=== PATIENT | female | born 1970 | race Caucasian/White ===

== ENCOUNTER 2017-04-08 13:21 | Emergency (ER) | payer BC ==
[~2017-04-08] VITALS: Ht 175.3 cm; Wt 68.7 kg
[2017-04-08 14:19] LABS: HEMATOCRIT 37.2 % (36.0-46.0); MCHC 29.8 G/DL (30.0-36.0); MCV 80.5 FL (83-99); MEAN PLAT.VOLUME 9.8 uM^3 (9.5-12.4); PLATELET COUNT 301 K/uL (156-360); RBC DIS.WIDTH-CV 22.2 % (11.8-14.6); RBC DIS.WIDTH-SD 63.4 % (39-53); RED BLOOD COUNT 4.62 M/uL (3.80-5.20); WHITE BLOOD COUNT 8.7 K/uL (4.1-10.2)
[2017-04-08 14:31] LABS: CHLORIDE 108 mEq/L (99-109); POTASSIUM 4.2 mEq/L (3.7-5.4); SODIUM 141 mEq/L (136-147)
[2017-04-08 14:34] LABS: GLUCOSE 146 mg/dL (70-99)
[2017-04-08 14:35] LABS: ANION GAP 9 MEQ/L (2-14)
[2017-04-08 14:36] LABS: TOTAL BILIRUBIN 0.3 mg/dL (0.0-1.0)
[2017-04-08 14:37] LABS: ALKALINE PHOSPHATASE 79 IU/L (3-129); GFR ESTIMATE (CALCULATED) > 59 mL/min/
[2017-04-08 14:38] LABS: UREA NITROGEN (BUN) 8 mg/dL (9-23)
[2017-04-08 14:45] LABS: ADD MIUA? YES; BILIRUBIN NEGATIVE; BLOOD MODERATE; COLOR YELLOW ((YELLOW)); GLUCOSE (STRIP) NEGATIVE; KETONES NEGATIVE; LEUKOCYTES MODERATE; NITRITE NEGATIVE; PROTEIN (STRIP) NEGATIVE; UROBILINOGEN 0.2 MG/DL (0.2-1.0)
[2017-04-08 14:47] LABS: QUANTITATIVE HCG < 4.0 MIU/ML
[2017-04-08 14:52] LABS: BACTERIA RARE /HPF; EPITHELIAL CELLS 2+ /HPF; MUCUS TRACE /LPF; RED BLOOD CELLS 0-5 /HPF (0-5); UCUL ADDED? YES; WHITE BLOOD CELLS 15-20 /HPF (0-5)
[2017-04-08] MEDS ORDERED: ANTIVERT25 MG PO (18:49)
[2017-04-08] MEDS ORDERED: MACROBID100 MG PO (18:49)
[2017-04-08 19:04] VITALS: BP 191/91
== END 2017-04-08 19:05 | disposition home or self-care (01) ==
LOC: EME 13:21
DX: R42 Dizziness and giddiness (principal); N39.0 Urinary tract infection, site not specified; N89.8 Other specified noninflammatory disorders of vagina; Z98.890 Other specified postprocedural states; Z88.0 Allergy status to penicillin
CPT/HCPCS: 74177; 80053; 81003; 84702; 85027; 87086; 99281; 99284; J7040

== ENCOUNTER 2017-12-18 06:37 | Emergency (ER) | payer BC ==
[~2017-12-18] VITALS: Ht 162.6 cm; Wt 69.0 kg
[~2017-12-18 06:37] MED LIST: ANTIVERT25 MG PO; MACROBID100 MG PO
[2017-12-18 07:10] LABS: BASOPHIL (%) 0.6 % (0-1); BASOPHIL COUNT 0.1 K/uL (0-0.1); EOSINOPHIL (%) 3.1 % (0-5); EOSINOPHIL COUNT 0.3 K/uL (0-0.3); HEMATOCRIT 40.2 % (36.0-46.0); HEMOGLOBIN 13.4 G/DL (11.9-15.5); IMMATURE GRANULOCYTE (%) 0.4 % (0.0-0.7); LYMPHOCYTE (%) 22.5 % (15-42); LYMPHOCYTE COUNT 1.8 K/uL (1.0-2.8); MCHC 33.3 G/DL (30.0-36.0); MCV 90.1 FL (83-99); MONOCYTE (%) 4.5 % (3-12); MONOCYTE COUNT 0.4 K/uL (0-0.8); NEUTROPHIL (%) 68.9 % (45-76); NEUTROPHIL COUNT 5.6 K/uL (1.8-6.4); PLATELET COUNT 275 K/uL (156-360); RBC DIS.WIDTH-SD 42.7 % (39-53); RED BLOOD COUNT 4.46 M/uL (3.80-5.20); WHITE BLOOD COUNT 8.1 K/uL (4.1-10.2)
[2017-12-18 07:16] LABS: INTER. NORMALIZED RATIO 1.1
[2017-12-18 07:18] LABS: PTT 30.1 SEC (25-37)
[2017-12-18 07:40] LABS: CHLORIDE 103 MEQ/L (99-109); POTASSIUM 3.7 MEQ/L (3.7-5.4); SODIUM 134 MEQ/L (136-147); TOTAL BILIRUBIN 0.3 MG/DL (0.0-1.0)
[2017-12-18 07:45] LABS: ALKALINE PHOSPHATASE 51 IU/L (3-129); ALT (GPT) 31 IU/L (3-49); AST (GOT) 18 IU/L (2-34); CREATININE 0.8 MG/DL (0.6-1.3); GFR ESTIMATE (CALCULATED) > 59 mL/min/; GLUCOSE 121 mg/dL (70-99); TOTAL PROTEIN 6.9 G/DL (6.4-8.3); UREA NITROGEN (BUN) 12 mg/dL (9-23)
[2017-12-18 07:48] LABS: QUANTITATIVE HCG < 4.0 MIU/ML
[2017-12-18] MEDS ORDERED: ZOFRAN ODT4 MG PO (08:11)
[2017-12-18 08:27] VITALS: BP 128/75
== END 2017-12-18 08:29 | disposition home or self-care (01) ==
LOC: EME 06:37
PROVIDERS: Emergency Medicine
DX: D25.9 Leiomyoma of uterus, unspecified (principal); M41.9 Scoliosis, unspecified; Z88.5 Allergy status to narcotic agent; Z88.0 Allergy status to penicillin; Z88.1 Allergy status to other antibiotic agents; Z88.2 Allergy status to sulfonamides
CPT/HCPCS: 80053; 81003; 84702; 85025; 85610; 85730; 99281; 99285

== ENCOUNTER 2018-01-30 14:45 | Emergency (ER) | payer BC ==
[~2018-01-30] VITALS: Ht 162.6 cm; Wt 75.6 kg
[~2018-01-30 14:45] MED LIST changes: +ZOFRAN ODT4 MG PO
[2018-01-30 15:17] LABS: BASOPHIL (%) 0.4 % (0-1); BASOPHIL COUNT 0.1 K/uL (0-0.1); EOSINOPHIL (%) 0.7 % (0-5); EOSINOPHIL COUNT 0.1 K/uL (0-0.3); HEMATOCRIT 35.7 % (36.0-46.0); HEMOGLOBIN 11.9 G/DL (11.9-15.5); IMMATURE GRANULOCYTE (%) 0.4 % (0.0-0.7); LYMPHOCYTE (%) 10.2 % (15-42); LYMPHOCYTE COUNT 1.3 K/uL (1.0-2.8); MCH 30.4 PG (29.0-34.0); MCHC 33.3 G/DL (30.0-36.0); MCV 91.1 FL (83-99); MONOCYTE COUNT 0.5 K/uL (0-0.8); NEUTROPHIL (%) 84.3 % (45-76); NEUTROPHIL COUNT 10.3 K/uL (1.8-6.4); PLATELET COUNT 207 K/uL (156-360); RBC DIS.WIDTH-CV 13.6 % (11.8-14.6); RBC DIS.WIDTH-SD 45.1 % (39-53); RED BLOOD COUNT 3.92 M/uL (3.80-5.20); WHITE BLOOD COUNT 12.2 K/uL (4.1-10.2)
[2018-01-30 15:22] LABS: INTER. NORMALIZED RATIO 1.1
[2018-01-30 15:25] LABS: CHLORIDE 104 mEq/L (99-109); POTASSIUM 4.2 mEq/L (3.7-5.4); PTT 29.1 SEC (25-37); SODIUM 138 mEq/L (136-147)
[2018-01-30 15:27] LABS: GLUCOSE 137 mg/dL (70-99)
[2018-01-30 15:31] LABS: CREATININE 0.8 mg/dL (0.6-1.3); GFR ESTIMATE (CALCULATED) > 59 mL/min/
[2018-01-30 15:32] LABS: UREA NITROGEN (BUN) 12 mg/dL (9-23)
[2018-01-30 15:39] LABS: QUANTITATIVE HCG < 4.0 MIU/ML
[2018-01-30 17:35] LABS: APPEARANCE CLEAR ((CLEAR)); BILIRUBIN NEGATIVE; BLOOD MODERATE; COLOR COLORLESS ((YELLOW)); GLUCOSE (STRIP) NEGATIVE; KETONES NEGATIVE; LEUKOCYTES NEGATIVE; NITRITE NEGATIVE; PROTEIN (STRIP) NEGATIVE; SPECIFIC GRAVITY 1.003 (1.000-1.030); UROBILINOGEN 0.2 MG/DL (0.2-1.0)
[2018-01-30 17:37] LABS: BACTERIA RARE /HPF; EPITHELIAL CELLS RARE /HPF; MUCUS NONE SEEN /LPF; RED BLOOD CELLS 0-5 /HPF (0-5); WHITE BLOOD CELLS 0-5 /HPF (0-5)
[2018-01-30] MEDS ORDERED: LEVAQUIN500 MG PO (18:51)
[2018-01-30] MEDS ORDERED: FLAGYL500 MG PO (18:51)
[2018-01-30] MEDS ORDERED: NAPROSYN500 MG PO (18:52)
[2018-01-30 19:18] VITALS: BP 105/74
== END 2018-01-30 19:30 | disposition home or self-care (01) ==
LOC: EME 14:45
PROVIDERS: Emergency Medicine
DX: D25.9 Leiomyoma of uterus, unspecified (principal); M41.9 Scoliosis, unspecified; Z88.2 Allergy status to sulfonamides; Z88.0 Allergy status to penicillin; Z88.5 Allergy status to narcotic agent; Z88.1 Allergy status to other antibiotic agents
CPT/HCPCS: 76856; 80048; 81003; 84702; 85025; 85610; 85730; 86850; 86900; 86901; 87210; 99281; 99285; J7030

== ENCOUNTER 2018-03-13 05:19 | Day surgery (SDC) | payer BC ==
[2018-03-13] VITALS (7 sets, daily range): BP systolic 107–179; BP diastolic 63–85
[~2018-03-13] VITALS: Ht 162.6 cm; Wt 65.8 kg
[~2018-03-13 05:19] MED LIST changes: +ADVIL,NUPRIN,M200 MG PO; +CLARITIN,ALAVAR10 MG PO; +FLAGYL500 MG PO; +IRON325 M1 PO; +LEVAQUIN500 MG PO; +NAPROSYN500 MG PO
[2018-03-13] MEDS ORDERED: PERCOCET 5/31 TABLET PO (07:33)
[2018-03-13] MEDS ORDERED: MOTRIN800 MG PO (07:33)
== END 2018-03-13 19:35 | disposition home or self-care (01) ==
LOC: SDC 05:19
DX: D25.1 Intramural leiomyoma of uterus (principal); D25.2 Subserosal leiomyoma of uterus; N92.0 Excessive and frequent menstruation with regular cycle; D64.9 Anemia, unspecified; Z88.1 Allergy status to other antibiotic agents; Z88.0 Allergy status to penicillin; Z88.2 Allergy status to sulfonamides
CPT/HCPCS: 88307; J1170; J1580; J1885; J2001; J2405; J2710; J2765; J2795; J3010; J3475; J7050; J7120; J7643; S0020